=== PATIENT | male | born 1950 | race Caucasian/White ===

== ENCOUNTER 2022-01-27 16:56 | Emergency (ER) | payer OTHER ==
[2022-01-27] MEDS ORDERED: FAMOTIDINE 20 MG/50 ML IVPB 20 MG in PREMIX 50 IVPB ONE (17:15)
[2022-01-27] MEDS ORDERED: MAG HYDROX/AL HYDROX/SIMETH -MYLANTA- ORAL SUSPENSION PO ONE (17:15)
[2022-01-27 17:18] VITALS: BP 145/94; PULSE 73; RESP 20; TEMP 98.2; BMI 30.2
[2022-01-27] MEDS ORDERED: FAMOTIDINE 20 MG/50 ML IVPB 20 MG/50 ML MG IVPB ONE (17:18)
[2022-01-27 17:44] LABS: HEMATOCRIT 43.8 % (35.4-49); HEMOGLOBIN 15.7 G/dL (11.7-16.9); MCHC 35.9 g/dl (32.0-35.9); MEAN CELL VOLUME 89.2 fl (80-96); PLATELET COUNT 162.7 10^3/uL (134-434); RBC 4.91 10^6/uL (4.00-5.60); RDW 13.8 % (11.9-15.9); WHITE BLOOD COUNT 5.9 10^3/uL (4.0-10.8)
[2022-01-27 18:00] LABS: ALBUMIN 4.2 g/dl (3.4-5.0); BILIRUBIN,TOTAL 0.7 mg/dl (0.2-1); CALCIUM 9.6 mg/dl (8.5-10); CREATININE 1.6 mg/dl (0.55-1.3); TOT PROT 6.9 g/dl (6.4-8.2)
[2022-01-27 18:41] LABS: PLATELET ESTIMATE ADEQUATE
[2022-01-27] MEDS ORDERED: SODIUM CHLORIDE 1,000 ML IV ONE (18:54)
[2022-01-27] MEDS ORDERED: HEPARIN NA (PORCINE) 5,000 UNITS/ML 1ML VIAL IVPUSH PRN ×2 (19:40)
[2022-01-27] MEDS ORDERED: HEPARIN NA (PORCINE) 5,000 UNITS/ML 1ML VIAL IVPUSH ONE (19:41)
[2022-01-27] MEDS ORDERED: HEPARIN - 25,000 UNIT in SODIUM CHLORIDE 495 ML IV SCH (19:45)
[2022-01-27] MEDS ORDERED: HEPARIN NA (PORCINE) 5,000 UNITS/ML 1ML VIAL ONE (19:54)
[2022-01-27] MEDS ORDERED: HEPARIN INFUSION - 25,000 UNITS/500 ML INFUS.BAG IVPB ONE (19:54)
== END 2022-01-28 00:27 | disposition short-term general hospital (02) ==
LOC: FER 16:56
DX: R07.9 Chest pain, unspecified (principal)
CPT/HCPCS: 36415; 71045-TC-FY; 80053; 83690; 84443; 84484; 85027; 93005; 99284-25; C9803-CS; J1644; U0003; U0005